=== PATIENT | male | born 1985 | race Caucasian/White ===

== ENCOUNTER 2023-02-10 20:59 | Emergency (ER) | payer SELFPAY ==
[2023-02-10 21:09] VITALS: BP 142/103; PULSE 81; RESP 16; TEMP 36.7; O2SAT 98; BMI 27.9
--- NOTE | 2023-02-10 21:27 | ED.GENADULT ---
HPI - General Adult General Time Seen by Provider: 21:27 Date Seen: 02/10/23 Chief complaint: Psychiatric Problem/Disorder Stated complaint: Mental Health Time Seen by Provider: 02/10/23 21:11 Source: patient, RN notes reviewed, old records reviewed and police Mode of arrival: ambulatory Limitations: no limitations History of Present Illness HPI narrative: 37-year-old male who comes in today for mental health evaluation. Patient admits to drinking alcohol and ?saying some things that should have, girlfriend called police and patient was brought to the emergency department. Per girlfriend, patient indicated that he was going to overdose on 15 ibuprofen, police said that patient had a note written to his daughter. Patient denies prior mental health treatment, no prior suicide attempts, stays at home taking care of his daughter as well as children of his significant other. Denies smoking, says he has does not drink frequently but did drink a lot today. Related Data Home Medications Medication Instructions Recorded Confirmed No Known Home Medications 02/10/23 02/10/23 Allergies Allergy/AdvReac Type Severity Reaction Status Date / Time No Known Drug Allergies Allergy Verified 02/10/23 21:13 Review of Systems Status of ROS: Reports: 10 or more systems reviewed and unremarkable except as noted in History and below PFSH PFSH Social History Smoking Status: Current every day smoker What tobacco products do you use: cigarettes How often do you have a drink containing alcohol: 2-3 times a week How many standard drinks containing alcohol do you have on a typical day: 3 or 4 AUDIT-C Alcohol total score: 4 Non-prescribed substance use: denies use Exam Narrative: Exam Narrative: General: Well-developed and well-nourished, no acute distress Head: Atraumatic and normocephalic Eyes: Pupils are equal reactive, extraocular motions intact, conjunctiva clear ENT: External nose and ears are normal, posterior pharynx without erythema or exudate Neck: No midline cervical tenderness, full spontaneous range of motion the neck, trachea midline, no adenopathy Heart: Regular rate and rhythm no murmurs or thrills Lungs: Clear to auscultation bilaterally without wheezes or crackles Abdomen: Soft, nontender, nondistended with active bowel sounds Musculoskeletal: No tenderness, deformity, or edema Neurologic: Awake, alert, and oriented x3, no gross focal neurologic deficits, cranial nerves intact as tested Psych: Mood and affect are appropriate Skin: No rashes Const: Vital Signs, click to edit/add: Vital Signs - 24 hr 02/10/23 21:09 Temperature 98.1 F Pulse Rate [Left P ulse Oximeter] 81 Respiratory Rate 16 Blood Pressure [Ri ght Upper Arm] 142/103 H Pulse Oximetry 98 Oxygen Delivery Me thod Room Air Course Course Hospital Course: Patient seen and examined, prior records are reviewed. Patient presents with mental health evaluation, alcohol intoxication. On exam here, good eye contact, some repetitive statements, denies ingestion. Finally stable. Labs are ordered and anticipate mental health evaluation when sober. Patient is holdable. Reevaluation(s) Time of Reevaluation #1: 22:51 Reevaluation #1: Labs independently interpreted by me with elevated alcohol level, negative salicylates, negative acetaminophen, UDS positive for opiates. Discussed with [facility] email marketing coordinator who recommends discharge with outpatient services. She will try to get more information from patient's significant other and if this causes change of plan, will call back. Otherwise, will hold patient in the emergency department until paper or from [facility] arrives. Vital Signs Vital signs: Initial Vital Signs Temperature 98.1 F 02/10/23 21:09 Temperature Source Temporal Artery Scan 02/10/23 21:09 Pulse Rate 81 02/10/23 21:09 Respiratory Rate 16 02/10/23 21:09 Blood Pressure 142/103 H 02/10/23 21:09 Blood Pressure Mean 116 H 02/10/23 21:09 Blood Pressure Position Sitting 02/10/23 21:09 Pulse Oximetry 98 02/10/23 21:09 Oxygen Delivery Method Room Air 02/10/23 21:09 Vital Signs Temperature 98.1 F 02/10/23 21:09 Pulse Rate 81 02/10/23 21:09 Respiratory Rate 16 02/10/23 21:09 Blood Pressure 142/103 H 02/10/23 21:09 Pulse Oximetry 98 02/10/23 21:09 Oxygen Delivery Method Room Air 02/10/23 21:09 Temperature 98.1 F 02/10/23 21:09 Pulse Rate 81 02/10/23 21:09 Respiratory Rate 16 02/10/23 21:09 Blood Pressure 142/103 H 02/10/23 21:09 Pulse Oximetry 98 07/18/23 21:09 Oxygen Delivery Method Room Air 02/10/23 21:09 Medical Decision Making Medical Records Medical records reviewed: Yes I reviewed the patient's medical records Lab Data Lab results reviewed: Yes I reviewed the patient's lab results Labs: Lab Results 02/10/23 02/10/23 Range/Units 21:15 21:28 Sodium 141 (135-149) mmol/L Potassium 3.3 L (3.6-5.1) mmol/L Chloride 110 (96-114) mmol/L Carbon Dioxide 18 L (20-32) mmol/L BUN 16 (5-24) mg/dL Creatinine 0.9 (0.5-1.5) mg/dL Estimated Creat Clear 118.53 Estimated GFR 112 ml/min Glucose 86 (60-115) mg/dL Calcium 8.9 (8.4-10.6) mg/dL Salicylates < 1.0 L (1.0-10) mg/dL Urine Opiates Screen POSITIVE A* (Negative) Ur Oxycodone Screen Negative (Negative) Urine Methadone Screen Negative (Negative) Ur Propoxyphene Screen Negative (Negative) Acetaminophen < 10.0 L (10.0-30.0) ug/mL Ur Barbiturates Screen Negative (Negative) U Tricyclic Antidepress Negative (Negative) Ur Phencyclidine Scrn Negative (Negative) Ur Amphetamines Screen Negative (Negative) U Methamphetamines Scrn Negative (Negative) U Benzodiazepines Scrn Negative (Negative) Urine Cocaine Screen Negative (Negative) U Marijuana (THC) Screen Negative (Negative) Ur Drug Screen Comment See Note Ethyl Alcohol 0.11 H (0.01-0.03) % Discharge Plan Discharge Clinical Impression: Alcohol intoxication Patient Disposition: Home, Self-Care Condition: Stable Instructions: Alcohol Intoxication (DC) Additional Instructions: Do not drink any more alcohol today Do not take any sedating medications such as sleeping pills today Do not drive for 12 hours Prescriptions: No Action No Known Home Medications Stand Alone Forms: [employer] Info Instructions
[2023-02-10 21:30] LABS: Amphetamine Screen Urine Negative (Negative); Barbiturate Screen Urine Negative (Negative); Benzodiazepines Screen Urine Negative (Negative); Cannabinoid Screen Urine Negative (Negative); Cocaine Screen Urine Negative (Negative); Methadone Screen Urine Negative (Negative); Methamphetamines Screen Urine Negative (Negative); Oxycodone Screen Urine Negative (Negative); Phencyclidine Screen Urine Negative (Negative); Tricyclic Antidepressant Urine Negative (Negative)
[2023-02-10 21:33] LABS: Opiate Screen Urine POSITIVE (Negative)
--- NOTE | 2023-02-10 21:47 | ED.NURSE ---
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
[2023-02-10 21:57] LABS: Chloride* 110 mmol/L (96-114); Potassium* 3.3 mmol/L (3.6-5.1); Sodium* 141 mmol/L (135-149)
[2023-02-10 22:00] LABS: Blood Urea Nitrogen* 16 mg/dL (5-24); Calcium* 8.9 mg/dL (8.4-10.6); Carbon Dioxide* 18 mmol/L (20-32); Creatinine* 0.9 mg/dL (0.5-1.5); Est. Creatinine Clearance* 118.53; Estimated Glomerular Filt Rate 112 ml/min; Glucose* 86 mg/dL (60-115)
[2023-02-10 22:01] LABS: Ethanol* 0.11 % (0.01-0.03)
[2023-02-10 22:04] LABS: Acetaminophen* < 10.0 ug/mL (10.0-30.0); Salicylate* < 1.0 mg/dL (1.0-10)
--- NOTE | 2023-02-10 22:34 | ED.NURSE ---
given some report to [facility] provider and called and is talking to patient now.
[2023-02-10] MEDS: NICOTINE 2 MG GUM BUCCAL (23:43)
[2023-02-11] MEDS: LORazepam 0.5 MG TABLET PO (00:01)
--- NOTE | 2023-02-11 00:01 | ED.NURSE ---
MD [facility] verbal for pt to be allowed to have phone at bedside to be in contact with his mother in [facility]. pt educated on proper use and phone will be removed if he uses inappropriately, pt verbalizes understanding.
[2023-02-11 03:15] LABS: SARS PCR* Negative SARS-CoV-2 (Negative)
[2023-02-11 04:17] VITALS: BP 128/88; PULSE 76; RESP 16; TEMP 36.6; O2SAT 98
--- NOTE | 2023-02-11 06:31 | ED.NURSE ---
report to adwoa hauser RN at [facility], verbal to send pt, [facility] at bedside to transport pt, pt voluntarily agrees to transport. no 72 hour hold signed.
== END 2023-02-11 06:32 | disposition home or self-care (01) ==
PROVIDERS: Family Medicine; Emergency Provider Family Medicine
DX: F10.129 Alcohol abuse with intoxication, unspecified (principal)
CPT/HCPCS: 36415; 80048; 80143; 80179; 80306; 82077; 87635; 99283; 99285; A9270

== ENCOUNTER 2023-02-11 06:16 | Outpatient (CLI) | payer SELFPAY | END 2023-02-11 06:17 | disposition home or self-care (01) | LOC: AMB 02-23 12:21 | PROVIDERS: Visit Provider Family Medicine | DX: R45.851 Suicidal ideations (principal) | CPT/HCPCS: A0425; A0428 ==